=== PATIENT | male | born 1985 ===

== ENCOUNTER → 2019-05-11 06:00 | Outpatient (CLI) | payer OTHER | END | disposition home or self-care (01) | LOC: LAB 06:00 → ADM 08:30 → CIR.AMB 05-13 08:30 → EDSTATUS 05-13 08:30 → CIR.AMB 05-13 11:00 | DX: S42.032A Displaced fracture of lateral end of left clavicle, initial encounter for closed fracture (principal); S43.122A Dislocation of left acromioclavicular joint, 100%-200% displacement, initial encounter; I10 Essential (primary) hypertension; Z01.810 Encounter for preprocedural cardiovascular examination ==